=== PATIENT | male | born 1985 | race Caucasian/White ===

== ENCOUNTER 2024-10-26 10:28 | Emergency (ER) | payer BC, SELFPAY ==
--- NOTE | 2024-10-26 10:38 | ED.URI ---
HPI - URI/Sore Throat General Chief Complaint: Upper Respiratory Infection Stated Complaint: GREENE,bodyaches,fever,nausea Time Seen by Provider: 10/26/24 10:33 Source: patient Mode of arrival: ambulatory Limitations: no limitations History of Present Illness HPI Narrative: Anastacio is a 38-year-old male patient presenting to the clinic today with complaints of headache, body aches, fever, and nausea x3 days. He reports fever was high as 103. States chest pain or shortness breath. MD elicited complaint: fever, cough, nasal congestion and other (Body aches, nausea, headache) Related Data Allergies Allergy/AdvReac Type Severity Reaction Status Date / Time No Known Allergies Allergy Verified 10/26/24 10:39 Review of Systems Review of Systems: Pertinent positives per HPI. Patient denies any rash, headache, visual changes, dizziness, shortness of breath, chest pain, palpitations, nausea, vomiting, diarrhea, constipation, abdominal pain, or any urinary issues. [facility] Family History Family History Grandparent Malignant neoplasm of prostate Family history of malignant neoplasm of breast Social History Social History Smoking status: Current every day smoker Smoking end date: 09/17/15 Alcohol intake: current Comments At the time of my signature, I reviewed and agree with the nursing past medical, surgical, social, and family history. There is no relevant family history pertinent to the patient complaint. Exam Narrative: General: Well-developed, well nourished, in no apparent distress Head: Normocephalic, atraumatic Eyes: Pupils equally round and reactive to light bilaterally, EOM intact, sclera and conjunctive clear, no discharge, lids normal Ears: TMs intact and clear, ear canals clear, no drainage, grossly hearing normal. Nose: Nares patent, clear nasal discharge, no inflammation, no sinus tenderness. Mouth: Oral pharynx without lesions or masses, good dentition, MMM. Postnasal drip Neck: Supple, trachea midline, no enlargement of anterior or posterior cervical nodes, no thyroid masses or goiter palpable. Cardio: Regular rate and rhythm, s1 and s2 normal, no murmur appreciated. Resp: Clear to auscultation bilaterally, no rhonchi, rales, wheezing or rubs Course Course Emergency Course: Portions of this record may have been created with voice recognition software. Level of Care: Express Care Visit Vital Signs Vital signs: Vital Signs Temperature 36.8 C 10/26/24 10:42 Pulse Rate 78 10/26/24 10:42 Respiratory Rate 16 10/26/24 10:42 Blood Pressure 117/77 10/26/24 10:42 Pulse Oximetry 99 10/26/24 10:42 Oxygen Delivery Room Air 10/26/24 10:42 Temperature 36.8 C 10/26/24 10:42 Pulse Rate 78 10/26/24 10:42 Respiratory Rate 16 10/26/24 10:42 Blood Pressure 117/77 10/26/24 10:42 Pulse Oximetry 99 10/26/24 10:42 Oxygen Delivery Room Air 10/26/24 10:42 Vital signs reviewed MDM - URI/Sore Throat MDM Narrative Medical decision making narrative: At the time of visit patient is resting comfortably on the exam table. Patient appears to be nontoxic. Labs: Influenza a testing was performed and negative in the clinic today. Plan: I suspect patient has a flu-like illness. Prescription for Zofran was sent to the pharmacy work note was given. Supportive measures were discussed with the patient and they voiced understanding discharge instructions and agrees to treatment plan. Return precautions reviewed Differential Diagnosis Differential diagnosis: Likely upper respiratory infection, otitis media, sinusitis, viral infection, bronchitis, influenza, pharyngitis and other (COVID) Lab Data Labs: Lab Results 10/26/24 Range/Units 11:12 POC Influenza A Ag Negative (Negative) POC Influenza B Ag Negative (Negative) Discharge Plan Discharge Clinical Impression: Influenza-like illness Patient Disposition: Home, Self-Care Condition: Stable Instructions: Antibiotic Form, Viral Syndrome (ED) Additional Instructions: Influenza testing was negative. Take prescription medications only as prescribed-ondansetron May take DayQuil/NyQuil for cold/flu symptoms Increase fluids and stay well hydrated Tylenol/motrin for pain/fever Flonase and OTC antihistamines as directed Vicks vapor rub to open sinuses Sinus rinses for congestion Cepacol spray, cough drops, throat lozenges, warm tea with honey/lemon, gargle salt water to soothe throat BRAT diet for diarrhea Clear liquids x 24 hours then advance as tolerated for nausea/vomiting Go to the ED if you develop a worsening in your condition- high fever not controlled by Tylenol or Motrin, dehydration, weakness, lethargy, shortness of breath, or chest pain. Follow up with your PCP in 3-5 days if symptoms persist. 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
[2024-10-26 10:42] VITALS: BP 117/77; PULSE 78; RESP 16; TEMP 36.8; O2SAT 99
[2024-10-26 11:16] LABS: EDINFLUASCREEN Negative (Negative); EDINFLUBSCREEN Negative (Negative)
== END 2024-10-26 11:15 | disposition home or self-care (01) ==
PROVIDERS: Emergency Provider Nurse Practitioner Family
DX: J11.1 Influenza due to unidentified influenza virus with other respiratory manifestations (principal)
CPT/HCPCS: 87804; 99203; G0463